=== PATIENT | female | born 1930 | race Caucasian/White ===

== ENCOUNTER 2019-04-02 10:59 | Inpatient (IN) ==
[2019-04-02 12:57] LABS: ALLEN TEST YES; BE 4.7 mmoll (-3.0-3.0); BLOOD TYPE ARTERIAL; HCO3-(ACT) 28.5 mmoll (20.0-26.0); METHB 1.1 % (0.0-1.5); MODALITY CANNULA; O2(CT) 14.3 mL/dL (15.0-23.0); O2HB 92.7 % (95.0-99.0); PO2(98.6) 69 mmHg (60-100); SAMPLE BLOOD; SAO2 95.4 % (95.0-100.0); THB 10.9 g/dL (11.5-17.4); pH(98.6) 7.35 (7.35-7.45)
[2019-04-02] MEDS ORDERED: NS 1,000 ML IV SCH (13:00)
[2019-04-02 13:02] LABS: PCO2(98.6) 57 mmHg (35-45)
--- NOTE | 2019-04-02 13:09 | EKG Report ---
Test Performed on : 04/02/2019 12:34:19 PM Test Reason : copd Blood Pressure : / mmHG Vent. Rate : 083 BPM Atrial Rate : 083 BPM P-R Int : 152 ms QRS Dur : 158 ms QT Int : 430 ms P-R-T Axes : 064 029 147 degrees QTc Int : 505 ms Normal sinus rhythm. Possible Left atrial enlargement Left bundle branch block Abnormal ECG When compared with ECG of 11-JUN-2012 13:14, premature atrial complexes. are no longer present Left bundle branch block is now present Confirmed by Kina STOLL, Mike Benitez ([id number]) on 04/02/2019 2:06:20 PM
[2019-04-02] MEDS: SOLU-MEDROL IV SCH ×2 (13:32→22:37)
[2019-04-02] MEDS: LOVENOX SUBQ SCH (13:32)
[2019-04-02 14:14] LABS: BASO# 0.01 X1000 (0.0-0.2); BASO% 0.2 % (0.0-0.8); EOS# 0.03 X1000 (0.0-0.7); EOS% 0.6 % (0.0-10.0); HEMATOCRIT 31.6 % (37.0-47.0); LYMPH% 11.1 % (20.5-51.1); MCH 31.4 PG (27-31); MCHC 31.6 g/dL (33-37); MCV 99.4 FL (81-99); MONO# 0.31 X1000 (0.11-0.59); MONO% 5.8 % (1.7-9.3); MPV 10.7 FL (7.4-10.4); NEUT# 4.44 X1000 (1.4-6.5); NEUT% 82.3 % (42.2-75.2); PLT 147 X1000 (130-400); RBC 3.18 XMIL (4.2-5.4); WBC 5.39 X1000 (4.8-10.8)
[2019-04-02 14:19] LABS: INR 1.12; PROTIME 14.6 Seconds (11.0-16.0)
[2019-04-02] MEDS: ROCEPHIN 1 GM in NS 50 ML IV SCH (14:33)
[2019-04-02] MEDS: ZITHROMAX PO SCH (14:33)
[2019-04-02 14:55] LABS: ALB/GLOB RATIO 1.5; ALBUMIN 3.9 g/dL (3.5-5.0); CALCIUM 9.5 mg/dL (8.8-10.2); CREATININE 1.1 mg/dL (0.5-0.9); MAGNESIUM 1.8 mg/dL (1.5-2.7); POTASSIUM 5.1 mmol/L (3.5-5.1); TOTAL BILIRUBIN 0.34 mg/dL (0.20-1.00); TOTAL PROTEIN 6.5 g/dL (6.3-8.3)
[2019-04-02] MEDS: DUONEB (A & A) INH SCH ×5 (16:06→23:11)
[2019-04-02] MEDS ORDERED: LASIX IV ONE (16:12)
--- NOTE | 2019-04-02 16:25 | Diag Imaging Result Doc PS360 ---
EXAM: CHEST-1 VIEW INDICATION: copd TECHNIQUE: One view COMPARISON: 06/11/2012 FINDINGS: Mild hyperinflation is stable. The lungs are grossly clear. There is no discrete pleural fluid collection or pneumothorax. 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 The cardiomediastinal silhouette and central vasculature are unremarkable, otherwise. IMPRESSION: Stable COPD changes. No definite acute pathology by plain radiograph. Electronically signed by Charles Reyes 04/02/2019 4:23 PM
--- NOTE | 2019-04-02 17:01 | HISTORY AND PHYSICAL ---
CHIEF COMPLAINT: Shortness of breath. Ms Capps 88-year-old white female patient, known case of advanced COPD, chronic respiratory failure, hypertension, hyperlipidemia, patient is on home oxygen and nebulizer treatment not doing well since yesterday. The patient had increasing cough, chest congestion, expectoration, decreased exercise tolerance. The patient also had some chest tightness and chest pain. The patient came to the office for evaluation. I evaluated the patient. The patient was in mild to moderate respiratory distress. She had bilateral expiratory wheezing. No movement of accessory muscle of respiration. I decided to admit the patient for further care. The patient was in agreement which usually patient declines. Patient denied any high-grade fever but she did have chills, scratchy throat, runny nose, stuffy nose, dull headache. No typical chest pain, occasional palpitation. Patient denied any orthopnea or PND. Oral intake was fair. No abdominal pain, nausea, vomiting. Denied any diarrhea, blood or mucus in the stool. The patient does have constipation, arthritic pain in the knee, also in the left ankle. No heat or cold intolerance. Denied polyuria, polydipsia. Unquantified weight loss. Patient does have mild cognitive impairment. No further history available at this time. ALLERGIES: No known drug allergy. PAST MEDICAL HISTORY: Coronary artery disease, hypertension, hyperlipidemia, COPD, chronic respiratory failure, osteoarthritis, patient had surgery for abdominal aortic aneurysm, pernicious anemia, gastritis and reflux disease. SOCIAL HISTORY: . Patient smoke few cigarettes a day. Denied alcohol or substance abuse. Lives by herself. Does have good family support. REVIEW OF SYSTEMS: As per HPI. FAMILY HISTORY: Noncontributory. HOME MEDICATIONS: Include Zestoretic, Zocor, nebulizer treatment, MiraLAX, patient is on home oxygen, aspirin. PHYSICAL EXAMINATION: VITAL SIGNS: Blood pressure 142/78, pulse 96, respiration 22, temperature 99.1 degrees. SKIN: Senile turgor. HEENT: Head atraumatic, normocephalic. [place] conjunctivae. Anicteric sclerae. Extraocular muscle movement normal. Fundus cannot be penetrated. Good oral hygiene. No tonsillopharyngeal congestion or exudate. Ears and nose benign. NECK: Supple. No JVD, thyromegaly or lymphadenopathy. CHEST: Bilateral good air entry present. Bilateral expiratory wheezing. No rales. CARDIOVASCULAR: S1 and S2 heard. No gallop or thrill, 2/6 systolic murmur at the apex. ABDOMEN: Soft, globular. Bowel sounds present. Scar of previous surgery well healed. Some incisional hernia. EXTREMITIES: No cyanosis, clubbing. No acute DVT. The patient does have arthritis of the ankle and both the knees. 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 LABORATORY DATA: Revealed leukocyte count 5.39, hemoglobin 10, hematocrit 31.6, platelet count 147,000. PT, PTT benign. Blood gas, pH 7.35, pCO2 57, PO2 69, O2 saturation was 95.4. This was done on 3 L via nasal cannula. Electrolytes were fairly benign. BUN 26, creatinine 1.1, proBNP was 3225. Patient chest x-ray result, official result is pending. Her EKG reviewed. CONSIDERATION: Acute exacerbation of chronic obstructive pulmonary disease, chronic hypercapnic respiratory failure, hypertension, hyperlipidemia, osteoarthritis, vitamin B12 deficiency, gastritis and reflux disease. PLAN: Admit patient. IV antibiotics, steroid. Symptomatic treatment. Fall precautions. DVT and GI prophylaxis. Overall plan discussed with the patient and her son. They are in agreement. cc: Wilfredo Camarena MD
[2019-04-02] MEDS: NS 1,000 ML IV SCH (17:35)
[2019-04-02 19:06] LABS: URINE SOURCE CLEAN CATCH
[2019-04-02 19:09] LABS: BILIRUBIN URINE NEGATIVE (NEGATIVE); BLOOD URINE SMALL (NEGATIVE); COLOR STRAW; GLUCOSE URINE NEGATIVE (NEGATIVE); KETONE URINE NEGATIVE (NEGATIVE); LEUKOCYTES URINE NEGATIVE (NEGATIVE); NITRITE URINE NEGATIVE (NEGATIVE); PROTEIN URINE NEGATIVE (NEGATIVE); SP GRAVITY URINE 1.009; TURBIDITY URINE HAZY (CLEAR); UR EPITHELIAL CELLS <10 /HPF (<10); URINE BACTERIA NEGATIVE /HPF; URINE RBC TNTC /HPF (<10); URINE WBC <10 /HPF (<10); UROBILINOGEN URINE NORMAL (NORMAL)
[2019-04-02 19:14] LABS: URINE CRYSTALS NONE SEEN
[2019-04-02] MEDS: ADVAIR 250/50 DISKUS INH SCH (19:29)
[2019-04-02] MEDS: PEPCID IV SCH (22:37)
[2019-04-02] MEDS: ZOCOR PO SCH (22:37)
[2019-04-02] MEDS: ASPIRIN PO SCH (22:37)
[2019-04-02] MEDS: PRINZIDE 10/12.5MG PO SCH (22:42)
[2019-04-03] MEDS: DUONEB (A & A) INH SCH ×11 (03:27→23:03)
[2019-04-03] MEDS: SOLU-MEDROL IV SCH ×3 (05:09→20:02)
[2019-04-03] MEDS: LOVENOX SUBQ SCH (05:10)
[2019-04-03] MEDS ORDERED: SODIUM CHLORIDE 0.9% 10 ML ONE (08:00)
[2019-04-03] MEDS: ADVAIR 250/50 DISKUS INH SCH ×2 (08:19→19:46)
[2019-04-03] MEDS: ZITHROMAX PO SCH (09:15)
[2019-04-03] MEDS: SODIUM CHLORIDE 0.9% INJ SCH ×2 (09:15→20:02)
[2019-04-03] MEDS: PEPCID IV SCH ×2 (09:15→20:03)
[2019-04-03] MEDS: ROCEPHIN 1 GM in NS 50 ML IV SCH (13:17)
--- NOTE | 2019-04-03 13:28 | PROGRESS NOTE ---
DATE: 04/03/2019 SUBJECTIVE: An 88-year-old white female, a patient of Dr. Camarena, admitted on 04/02/2019 with shortness of breath. Admitted to the hospital for COPD exacerbation. PAST MEDICAL HISTORY: Reviewed. PAST SURGICAL HISTORY: Reviewed. MEDICINES: Reviewed. ALLERGIES: Not known. REVIEW OF SYSTEMS: Try to quit smoking. PHYSICAL EXAMINATION: Vital signs: Temperature is 98.8 degrees, pulse is 85, blood pressure is 132/60. General: The patient is sitting out of the bed, not in respiratory distress. HEENT: Within normal limits. Neck: Supple. Chest: Bilateral air entry. Expiratory wheezing. Heart: Distant heart sounds. Abdomen: Belly is soft. Multiple midline ventral hernias noted. Neurologic: No obvious deficits. INVESTIGATIONS: None reported today. White cell count 5.3, hematocrit 31, platelets 147,000. PT/INR is normal. ABG show pH is 7.35, pCO2 57, PO2 69 on 32%. Sodium 135, potassium 5.1, BUN 26, creatinine 1.1, glucose 114, calcium and magnesium were normal. EKG normal sinus with left bundle branch block. Chest x-ray, COPD changes. Blood cultures are pending. ASSESSMENT AND PLAN: 1. Acute chronic obstructive pulmonary disease exacerbation, currently on IV steroids 40 mg q.8, Advair 1 puff b.i.d., IV ceftriaxone, IV Zithromax, and bronchodilators. 2. Deep venous thrombosis prophylaxis with Lovenox. 3. GI prophylaxis with IV Pepcid. 4. Hyperlipidemia, on Zocor. 5. Tobacco abuse. Quit smoking. 6. Ventral hernias, multiple, stable. 7. History of aortic aneurysm, repair, midline scar, stable. 8. History of B12 deficiency anemia, stable. 9. Continue present treatment, stable LEVEL OF DOCUMENTATION: 35 minutes. cc: MD Wilfredo Boland MD
[2019-04-03] MEDS: NS 1,000 ML IV SCH ×2 (18:34→20:02)
[2019-04-03] MEDS: ASPIRIN PO SCH (20:03)
[2019-04-03] MEDS: PRINZIDE 10/12.5MG PO SCH (20:03)
[2019-04-03] MEDS: ZOCOR PO SCH (20:03)
[2019-04-04] MEDS: LOVENOX SUBQ SCH (05:05)
[2019-04-04] MEDS: SOLU-MEDROL IV SCH ×3 (05:05→23:03)
[2019-04-04] MEDS: ADVAIR 250/50 DISKUS INH SCH ×2 (07:58→19:44)
[2019-04-04] MEDS: DUONEB (A & A) INH SCH ×10 (07:58→23:30)
[2019-04-04] MEDS: SODIUM CHLORIDE 0.9% INJ SCH ×2 (09:07→23:02)
[2019-04-04] MEDS: PEPCID IV SCH ×2 (09:07→23:01)
[2019-04-04] MEDS: ZITHROMAX PO SCH (09:07)
[2019-04-04] MEDS: ROCEPHIN 1 GM in NS 50 ML IV SCH (12:31)
--- NOTE | 2019-04-04 14:40 | PROGRESS NOTE ---
DATE: 04/04/2019 SUBJECTIVE: The patient is doing very well. No complaints. Eating well. PHYSICAL EXAMINATION: Vital Signs: Temp is 98.4 degrees, pulse 87, respirations 20, blood pressure 138/61, saturating 99%. HEENT: Within normal limits. Chest: Bilateral air entry. Heart: Heart sounds are regular. Abdomen: Belly is soft with multiple incisional hernia noted. LABORATORY DATA: No labs were drawn. ASSESSMENT AND PLAN: 1. Acute chronic obstructive pulmonary disease exacerbation is better. Continue present treatment with intravenous steroids, Advair, intravenous ceftriaxone, Zithromax, and bronchodilators. 2. Deep venous thrombosis and gastrointestinal prophylaxis as per order sheet. 3. Quit smoking. 4. Multiple ventral hernias, stable. 5. Continue present treatment, and anxious to go home. Initiate vaccination protocol prior to the discharge. LEVEL OF DOCUMENTATION: 25 minutes. cc: MD Wilfredo Boland MD
[2019-04-04] MEDS: ASPIRIN PO SCH (23:01)
[2019-04-04] MEDS: PRINZIDE 10/12.5MG PO SCH (23:02)
[2019-04-04] MEDS: ZOCOR PO SCH (23:02)
[2019-04-05] MEDS: SOLU-MEDROL IV SCH (06:11)
[2019-04-05] MEDS: LOVENOX SUBQ SCH (06:12)
--- NOTE | 2019-04-05 07:19 | PROGRESS NOTE ---
DATE: 04/05/2019 SUBJECTIVE: Ms. Capps is feeling some better. Her chest congestion and cough improving. Shortness of breath is less. No high-grade fever or chills. Oral intake is fair. No nausea or vomiting. OBJECTIVE: Vitals: Vital signs noted. Neck: Neck is supple. No JVD. Lungs: Bilateral good air entry present. Occasional wheezing. CVS: S1 and S2 heard. Abdomen: Soft, nontender. Bowel sounds present. Patient does have incisional hernia. Extremities: No cyanosis, clubbing. No acute deep venous thrombosis. BEADING SAWYER: Alert, awake. Able to move all 4 limbs. CONSIDERATIONS: 1. Chronic obstructive pulmonary disease exacerbation. 2. Hypertension. 3. Coronary artery disease. PLAN: Clinically patient seems to be doing better. I am going to repeat chest x-ray and blood work today. Stop Solu-Medrol and try p.o. prednisone. If clinical condition permits and blood work allows, I will plan discharging the patient home soon. cc: Wilfredo Camarena MD
--- NOTE | 2019-04-05 07:27 | Diag Imaging Result Doc PS360 ---
EXAM: CHEST-PORTABLE HISTORY: sob TECHNIQUE: Chest single view COMPARISON: 04/02/2019 FINDINGS: The lungs are well expanded. The heart is not enlarged. Sternal wires are present. The vessels are mildly distended. There are no infiltrates. No effusion identified. IMPRESSION: Mild pulmonary edema. Electronically signed by Rudolph Mead 04/05/2019 7:24 AM
[2019-04-05 07:51] LABS: HEMATOCRIT 31.2 % (37.0-47.0); HEMOGLOBIN 10.2 g/dL (12.0-16.0); LYMPH# 0.27 X1000 (1.2-3.4); LYMPH% 5.5 % (20.5-51.1); MCH 31.3 PG (27-31); MCHC 32.7 g/dL (33-37); MCV 95.7 FL (81-99); MONO# 0.47 X1000 (0.11-0.59); MONO% 9.6 % (1.7-9.3); NEUT# 4.16 X1000 (1.4-6.5); NEUT% 84.9 % (42.2-75.2); PLT 143 X1000 (130-400); RBC 3.26 XMIL (4.2-5.4); RDW 12.9 % (11.5-14.5)
[2019-04-05] MEDS: DUONEB (A & A) INH SCH ×6 (07:54→22:30)
[2019-04-05] MEDS: ADVAIR 250/50 DISKUS INH SCH ×2 (07:55→20:09)
[2019-04-05 08:11] LABS: ALB/GLOB RATIO 1.6; ALBUMIN 3.8 g/dL (3.5-5.0); CALCIUM 9.1 mg/dL (8.8-10.2); CREATININE 1.3 mg/dL (0.5-0.9); MAGNESIUM 1.9 mg/dL (1.5-2.7); POTASSIUM 4.3 mmol/L (3.5-5.1); TOTAL BILIRUBIN 0.22 mg/dL (0.20-1.00); TOTAL PROTEIN 6.2 g/dL (6.3-8.3)
[2019-04-05] MEDS ORDERED: PREDNISONE PO SCH (09:00)
[2019-04-05] MEDS: ZITHROMAX PO SCH (09:38)
[2019-04-05] MEDS: PEPCID IV SCH ×2 (09:39→21:26)
[2019-04-05] MEDS: SODIUM CHLORIDE 0.9% INJ SCH ×2 (09:39→21:27)
[2019-04-05] MEDS: ROCEPHIN 1 GM in NS 50 ML IV SCH (13:06)
[2019-04-05] MEDS ORDERED: LASIX IV ONE (15:25)
[2019-04-05] MEDS: NS 1,000 ML IV SCH (16:53)
[2019-04-05] MEDS ORDERED: KLONOPIN PO SCH (21:00)
[2019-04-05] MEDS: ASPIRIN PO SCH (21:25)
[2019-04-05] MEDS: PRINZIDE 10/12.5MG PO SCH (21:26)
[2019-04-05] MEDS: ZOCOR PO SCH (21:26)
[2019-04-06] MEDS: DUONEB (A & A) INH SCH ×3 (06:14→08:03)
[2019-04-06] MEDS: LOVENOX SUBQ SCH (06:40)
[2019-04-06] MEDS: ADVAIR 250/50 DISKUS INH SCH (08:03)
[2019-04-06 08:07] VITALS: BP 142/63
[2019-04-06] MEDS: ROCEPHIN 1 GM in NS 50 ML IV SCH (08:22)
[2019-04-06] MEDS: PEPCID IV SCH (08:22)
[2019-04-06] MEDS: SODIUM CHLORIDE 0.9% INJ SCH (08:23)
[2019-04-06] MEDS: ZITHROMAX PO SCH (08:23)
[2019-04-06] MEDS ORDERED: PREDNISONE PO SCH (09:00)
--- NOTE | 2019-04-06 22:35 | DISCHARGE SUMMARY ---
ADMISSION DATE: 04/02/2019 DISCHARGE DATE: 04/06/2019 FINAL DISCHARGE DIAGNOSIS: 1. Chronic obstructive pulmonary disease exacerbation. 2. Acute hypoxemic and hypercarbic respiratory failure. 3. Hypertension. 4. Gastritis and reflux disease. 5. Mild pulmonary edema. Could be due to fluid overload. 6. Osteoarthritis. 7. Incisional hernia. 8. History of coronary artery disease 9. Hyperlipidemia. 10. Anemia of chronic disease. Ms Capps 88-year-old white female patient admitted with chest congestion, cough, wheezing, shortness of breath not responding to her home treatment, patient was getting more short of breath. The patient also had some chest pain. I evaluated patient in the office admitted her for further care. HOSPITAL COURSE: Patient was placed on telemetry. We continued home oxygen and nebulizer treatment. Started her on Solu-Medrol bronchodilator treatment. Gave her p.r.n. Lasix. Her overall condition stabilized and improved. Her shortness of breath improved. Overall patient is doing better. She denied any fever, chills. The patient was able to rest well last night. The patient is eager to go home today. Vital signs noted. Neck: Supple. No JVD. Lungs: Few basilar crepitations. Occasional wheezing. CVS: S1 and S2 heard, 2/6 systolic murmur at the apex. Abdomen: Soft, nontender. Bowel sounds present. Extremities: No cyanosis, clubbing. No acute DVT. 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 Patient does have incisional hernia in the abdominal area. LAB DATA: Hemoglobin 10.2, hematocrit 31.2, WBC count 4.9, platelet 143,000. Blood gas on admission, pH 7.35, pCO2 57, PO2 was 69. Electrolytes done yesterday BUN 34, creatinine 1.3. ProBNP was 3225. Urinalysis result reviewed. Chest x-ray done yesterday did reveal mild pulmonary edema. Overall patient received maximum benefit of hospitalization. I am going to discharge patient home on tapering dose of prednisone, oral antibiotics. She will continue her home medicine, home oxygen, bronchodilator treatment. Follow up with me in 1 week. In case of more distress, call us back or go to emergency room. cc: Wilfredo Camarena MD
== END 2019-04-06 10:19 | disposition home or self-care (01) | DRG 190 ==
LOC: DIRADM 10:59 → 4N 11:34
PROVIDERS: ADMIT Internal Medicine; ATTEND Internal Medicine